=== PATIENT | male | born 1955 | race Caucasian/White ===

== ENCOUNTER 2018-03-16 07:19 | Inpatient (IN) | payer OTHER ==
[~2018-03-16] VITALS: Ht 179.1 cm; Wt 110.7 kg
[2018-03-16 08:19] LABS: PLATELET COUNT 198 x10^3mcL (130-400); RED CELL DISTRIBUTION WIDTH 14.5 % (11.5-14.5)
[2018-03-16 08:29] LABS: CALCIUM 8.7 mg/dL (8.5-10.1); CARBON DIOXIDE 25.3 mmol/L (21-32); CHLORIDE SERUM 103 mmol/L (98-107); CREATININE SERUM 0.9 mg/dL (0.7-1.3); GFR1 > 60 mL/min; GLUCOSE SERUM 137 mg/dL (74-106); POTASSIUM SERUM 3.4 mmol/L (3.5-5.1); SODIUM SERUM 138 mmol/L (136-145)
[2018-03-16 08:33] LABS: ALBUMIN 3.7 g/dL (3.4-5.0); ALKALINE PHOSPHATASE 65 U/L (46-116); ALT/SGPT 63 U/L (16-63); AMYLASE 78 U/L (25-115); AST/SGOT 24 U/L (15-37); BILIRUBIN TOTAL 1.5 mg/dL (0.20-1.00); LIPASE 134 IU/L (73-393); TOTAL PROTEIN, SERUM 8.2 g/dL (6.4-8.2)
[2018-03-16 08:36] LABS: BAND NEUTROPHIL 2 % (0-10); BASOPHIL 0 % (0-2); MONOCYTE 12 % (0-7); SEGMENTED NEUTROPHILS 82 % (37-75)
[2018-03-16 08:37] LABS: PLATELET MORPHOLOGY PLATELETS DECREASED; rbc morphology (normal/abnorm) NORMAL (NORMAL)
[2018-03-16 10:04] LABS: UA SPECIFIC GRAVITY 1.025 (1.005-1.035); microscopic required? YES; urine erythrocyte 2+ (NEGATIVE)
[2018-03-16 13:12] VITALS: BP 125/70
[2018-03-16 17:32] VITALS: BP 106/71
[2018-03-16 20:58] VITALS: BP 123/80
[2018-03-17 05:59] VITALS: BP 116/62
[2018-03-17 06:21] LABS: CALCIUM 8.2 mg/dL (8.5-10.1); CARBON DIOXIDE 23.3 mmol/L (21-32); CHLORIDE SERUM 110 mmol/L (98-107); CREATININE SERUM 0.9 mg/dL (0.7-1.3); GFR1 > 60 mL/min; GLUCOSE SERUM 141 mg/dL (74-106); MAGNESIUM 2.2 mg/dL (1.8-2.4); PHOSPHOROUS 2.1 mg/dL (2.5-4.9); POTASSIUM SERUM 3.9 mmol/L (3.5-5.1); SODIUM SERUM 145 mmol/L (136-145)
[2018-03-17 08:33] VITALS: BP 107/63
[2018-03-17 11:19] LABS: PLATELET COUNT 160 x10^3mcL (130-400); RED CELL DISTRIBUTION WIDTH 14.5 % (11.5-14.5)
[2018-03-17 11:23] LABS: ATYPICAL LYMPH 2 %; BAND NEUTROPHIL 1 % (0-10); BASOPHIL 0 % (0-2); MONOCYTE 2 % (0-7); SEGMENTED NEUTROPHILS 91 % (37-75)
[2018-03-17 11:24] LABS: PLATELET MORPHOLOGY PLATELETS DECREASED; rbc morphology (normal/abnorm) ABNORMAL (NORMAL)
[2018-03-17 12:36] LABS: BASOPHIL % 0.5 % (0-2); PLATELET COUNT 162 x10^3mcL (130-400)
[2018-03-17 12:39] LABS: RED CELL DISTRIBUTION WIDTH 14.6 % (11.5-14.5)
[2018-03-17 14:39] VITALS: BP 116/62
[2018-03-17 16:16] VITALS: BP 116/67
[2018-03-17 21:12] VITALS: BP 122/62
[2018-03-18 06:19] VITALS: BP 118/66
[2018-03-18 06:37] LABS: CALCIUM 8.7 mg/dL (8.5-10.1); CARBON DIOXIDE 22.8 mmol/L (21-32); CHLORIDE SERUM 109 mmol/L (98-107); GFR1 > 60 mL/min; GLUCOSE SERUM 158 mg/dL (74-106); MAGNESIUM 2.2 mg/dL (1.8-2.4); PHOSPHOROUS 2.8 mg/dL (2.5-4.9); POTASSIUM SERUM 4.1 mmol/L (3.5-5.1); SODIUM SERUM 144 mmol/L (136-145)
[2018-03-18 08:14] VITALS: BP 117/63
[2018-03-22 08:26] VITALS: Ht 179.1 cm; Wt 110.7 kg
== END 2018-03-18 16:37 | disposition home or self-care (01) | DRG 720 ==
LOC: ED 07:19 → DU 11:06 → MU 11:06 → DU 12:21 → MU 13:42
PROVIDERS: Internal Medicine; Specialist
DX: A41.9 Sepsis, unspecified organism (principal); N28.1 Cyst of kidney, acquired; N13.6 Pyonephrosis; B96.89 Other specified bacterial agents as the cause of diseases classified elsewhere; E11.9 Type 2 diabetes mellitus without complications; E66.9 Obesity, unspecified; E87.6 Hypokalemia; Z87.81 Personal history of (healed) traumatic fracture; Z87.828 Personal history of other (healed) physical injury and trauma; Z87.442 Personal history of urinary calculi
CPT/HCPCS: J0696; J1170; J1644; J1885; J2270; J2405; J2765; J2920; J3490; J7030; J7620; J7626; Q0092

== ENCOUNTER 2018-11-02 12:37 | Inpatient (IN) | payer OTHER ==
[~2018-11-02] VITALS: Ht 177.8 cm; Wt 118.7 kg
[2018-11-02 13:21] LABS: BASOPHIL % 0.2 % (0-2); PLATELET COUNT 154 x10^3mcL (130-400); RED CELL DISTRIBUTION WIDTH 14.4 % (11.5-14.5)
[2018-11-02 13:39] LABS: CALCIUM 8.9 mg/dL (8.5-10.1); CARBON DIOXIDE 24.4 mmol/L (21-32); CHLORIDE SERUM 102 mmol/L (98-107); CREATININE SERUM 1.1 mg/dL (0.7-1.3); GFR1 > 60 mL/min; GLUCOSE SERUM 181 mg/dL (74-106); POTASSIUM SERUM 3.1 mmol/L (3.5-5.1); SODIUM SERUM 136 mmol/L (136-145)
[2018-11-02 13:44] LABS: ALBUMIN 3.8 g/dL (3.4-5.0); ALKALINE PHOSPHATASE 67 U/L (46-116); ALT/SGPT 57 U/L (16-63); AMYLASE 79 U/L (25-115); AST/SGOT 37 U/L (15-37); BILIRUBIN TOTAL 0.7 mg/dL (0.20-1.00); LIPASE 147 IU/L (73-393); TOTAL PROTEIN, SERUM 8.1 g/dL (6.4-8.2)
[2018-11-02 14:44] LABS: UA SPECIFIC GRAVITY 1.025 (1.005-1.035); microscopic required? YES; urine erythrocyte 2+ (NEGATIVE)
[2018-11-02 18:20] VITALS: BP 102/62
[2018-11-02 21:05] VITALS: BP 119/67
[2018-11-03 05:39] VITALS: BP 151/90
[2018-11-03 06:27] LABS: BASOPHIL % 0.2 % (0-2); PLATELET COUNT 131 x10^3mcL (130-400); RED CELL DISTRIBUTION WIDTH 14.2 % (11.5-14.5)
[2018-11-03 06:41] LABS: CALCIUM 8.5 mg/dL (8.5-10.1); CARBON DIOXIDE 24.6 mmol/L (21-32); CHLORIDE SERUM 105 mmol/L (98-107); CREATININE SERUM 1.2 mg/dL (0.7-1.3); GFR1 > 60 mL/min; GLUCOSE SERUM 153 mg/dL (74-106); POTASSIUM SERUM 3.9 mmol/L (3.5-5.1); SODIUM SERUM 138 mmol/L (136-145)
[2018-11-03 09:54] VITALS: BP 123/68
[2018-11-03 12:33] VITALS: BP 126/62
[2018-11-03 16:35] VITALS: BP 112/55
[2018-11-03 21:38] VITALS: BP 115/67
[2018-11-04 05:42] VITALS: BP 104/65
[2018-11-04 06:15] LABS: BASOPHIL % 0.2 % (0-2); RED CELL DISTRIBUTION WIDTH 14.1 % (11.5-14.5)
[2018-11-04 06:17] LABS: CARBON DIOXIDE 23.3 mmol/L (21-32); CHLORIDE SERUM 104 mmol/L (98-107); CREATININE SERUM 1.1 mg/dL (0.7-1.3); GFR1 > 60 mL/min; GLUCOSE SERUM 137 mg/dL (74-106); MAGNESIUM 1.9 mg/dL (1.8-2.4); POTASSIUM SERUM 3.6 mmol/L (3.5-5.1); SODIUM SERUM 138 mmol/L (136-145)
[2018-11-04 06:20] LABS: PLATELET COUNT 98 x10^3mcL (130-400)
[2018-11-04 10:26] VITALS: BP 110/62
[2018-11-04 15:10] VITALS: Ht 177.8 cm; Wt 118.7 kg
[2018-11-04 17:21] LABS: AMPHETAMINE QUAL UR NONE DETECTED (See below)
[2018-11-04 18:18] VITALS: BP 100/60
[2018-11-04 20:56] VITALS: BP 118/69
[2018-11-05 05:06] VITALS: BP 126/71
[2018-11-05 08:19] VITALS: BP 120/60
[2018-11-05 16:14] VITALS: BP 121/56
[2018-11-05 20:05] VITALS: BP 132/77
[2018-11-06 04:19] VITALS: BP 104/71
[2018-11-06 07:14] LABS: RED CELL DISTRIBUTION WIDTH 14.4 % (11.5-14.5)
[2018-11-06 07:23] LABS: BASOPHIL % 0 % (0-2); PLATELET COUNT 54 x10^3mcL (130-400)
[2018-11-06 08:03] LABS: CARBON DIOXIDE 23.9 mmol/L (21-32); CHLORIDE SERUM 106 mmol/L (98-107); CREATININE SERUM 1.1 mg/dL (0.7-1.3); GFR1 > 60 mL/min; GLUCOSE SERUM 130 mg/dL (74-106); POTASSIUM SERUM 3.4 mmol/L (3.5-5.1); SODIUM SERUM 141 mmol/L (136-145)
[2018-11-06 09:47] VITALS: BP 118/63
[2018-11-06 17:27] VITALS: BP 123/58
[2018-11-06 20:56] VITALS: BP 94/62
[2018-11-07 05:16] VITALS: BP 100/57
[2018-11-07 07:05] LABS: BILIRUBIN TOTAL 2.95 mg/dL (0.20-1.00); CARBON DIOXIDE 24.3 mmol/L (21-32); CREATININE SERUM 1.3 mg/dL (0.7-1.3); MAGNESIUM 2.1 mg/dL (1.8-2.4); PHOSPHOROUS 2.2 mg/dL (2.5-4.9); POTASSIUM SERUM 3.6 mmol/L (3.5-5.1)
[2018-11-07 07:06] LABS: ALBUMIN 2.3 g/dL (3.4-5.0); TOTAL PROTEIN, SERUM 5.5 g/dL (6.4-8.2)
[2018-11-07 07:19] LABS: RED CELL DISTRIBUTION WIDTH 14.7 % (11.5-14.5)
[2018-11-07 09:24] VITALS: BP 105/56
[2018-11-07 09:31] LABS: BAND NEUTROPHIL 23 % (0-10); BASOPHIL 0 % (0-2); MONOCYTE 3 % (0-7); SEGMENTED NEUTROPHILS 61 % (37-75)
[2018-11-07 09:33] LABS: rbc morphology (normal/abnorm) NORMAL (NORMAL)
[2018-11-07 12:50] LABS: PLATELET COUNT 41 x10^3mcL (130-400)
[2018-11-07 17:51] VITALS: BP 90/44
[2018-11-07 19:41] VITALS: BP 108/47
[2018-11-08 04:55] VITALS: BP 84/55
[2018-11-08 06:55] LABS: UA SPECIFIC GRAVITY 1.025 (1.005-1.035); microscopic required? YES; urine erythrocyte 2+ (NEGATIVE)
[2018-11-08 09:00] VITALS: BP 84/54
[2018-11-08 10:47] VITALS: BP 115/64
[2018-11-08 14:48] VITALS: BP 83/46
[2018-11-08 15:08] LABS: CARBON DIOXIDE 22.8 mmol/L (21-32); CREATININE SERUM 1.6 mg/dL (0.7-1.3); POTASSIUM SERUM 3.6 mmol/L (3.5-5.1)
[2018-11-08 15:19] LABS: RED CELL DISTRIBUTION WIDTH 15.3 % (11.5-14.5)
[2018-11-08 15:51] LABS: BAND NEUTROPHIL 7 % (0-10); BASOPHIL 0 % (0-2); MONOCYTE 2 % (0-7); SEGMENTED NEUTROPHILS 66 % (37-75)
[2018-11-08 15:53] LABS: rbc morphology (normal/abnorm) NORMAL (NORMAL)
[2018-11-08 15:55] LABS: PLATELET COUNT 22 x10^3mcL (130-400)
[2018-11-08 23:20] VITALS: BP 100/62
[2018-11-09 03:15] VITALS: BP 93/69
[2018-11-09 05:48] LABS: BASOPHIL % 0.2 % (0-2)
[2018-11-09 05:52] LABS: ALKALINE PHOSPHATASE 91 U/L (46-116); ALT/SGPT 118 U/L (16-63); AST/SGOT 226 U/L (15-37); BILIRUBIN TOTAL 4.18 mg/dL (0.20-1.00); CALCIUM 7.5 mg/dL (8.5-10.1); CARBON DIOXIDE 21.7 mmol/L (21-32); CHLORIDE SERUM 106 mmol/L (98-107); GFR1 > 60 mL/min; GLUCOSE SERUM 142 mg/dL (74-106); LIPASE 81 IU/L (73-393); MAGNESIUM 2.4 mg/dL (1.8-2.4); SODIUM SERUM 131 mmol/L (136-145)
[2018-11-09 05:53] LABS: TOTAL PROTEIN, SERUM 4.9 g/dL (6.4-8.2)
[2018-11-09 05:55] LABS: RED CELL DISTRIBUTION WIDTH 15.1 % (11.5-14.5)
[2018-11-09 08:41] VITALS: BP 110/67
[2018-11-09 09:22] LABS: PLATELET COUNT 25 x10^3mcL (130-400)
[2018-11-09 12:13] VITALS: BP 106/63
[2018-11-09 16:17] VITALS: BP 98/71
[2018-11-09 19:15] VITALS: BP 112/60
[2018-11-09 23:31] VITALS: BP 126/62
[2018-11-10 03:31] VITALS: BP 121/65
[2018-11-10 05:19] LABS: ALKALINE PHOSPHATASE 82 U/L (46-116); ALT/SGPT 94 U/L (16-63); AST/SGOT 164 U/L (15-37); BILIRUBIN TOTAL 3.18 mg/dL (0.20-1.00); CALCIUM 7.8 mg/dL (8.5-10.1); CARBON DIOXIDE 20.4 mmol/L (21-32); CHLORIDE SERUM 113 mmol/L (98-107); CREATININE SERUM 0.9 mg/dL (0.7-1.3); GFR1 > 60 mL/min; GLUCOSE SERUM 157 mg/dL (74-106); MAGNESIUM 2.5 mg/dL (1.8-2.4); POTASSIUM SERUM 3.6 mmol/L (3.5-5.1); SODIUM SERUM 144 mmol/L (136-145)
[2018-11-10 05:28] LABS: ALBUMIN 2.2 g/dL (3.4-5.0); TOTAL PROTEIN, SERUM 4.9 g/dL (6.4-8.2)
[2018-11-10 06:04] LABS: BASOPHIL % 0 % (0-2); PLATELET COUNT 39 x10^3mcL (130-400); RED CELL DISTRIBUTION WIDTH 15.3 % (11.5-14.5)
[2018-11-10 07:30] VITALS: BP 117/82
[2018-11-10 17:15] VITALS: BP 106/66
[2018-11-10 20:48] VITALS: BP 114/68
[2018-11-11 07:20] LABS: ALKALINE PHOSPHATASE 90 U/L (46-116); ALT/SGPT 105 U/L (16-63); AST/SGOT 163 U/L (15-37); BILIRUBIN TOTAL 1.97 mg/dL (0.20-1.00); CALCIUM 7.8 mg/dL (8.5-10.1); CARBON DIOXIDE 22.8 mmol/L (21-32); CHLORIDE SERUM 115 mmol/L (98-107); CREATININE SERUM 0.8 mg/dL (0.7-1.3); GFR1 > 60 mL/min; GLUCOSE SERUM 143 mg/dL (74-106); MAGNESIUM 2.5 mg/dL (1.8-2.4); POTASSIUM SERUM 3.5 mmol/L (3.5-5.1); SODIUM SERUM 146 mmol/L (136-145)
[2018-11-11 07:29] LABS: ALBUMIN 2.1 g/dL (3.4-5.0); TOTAL PROTEIN, SERUM 4.9 g/dL (6.4-8.2)
[2018-11-11 07:59] LABS: RED CELL DISTRIBUTION WIDTH 14.5 % (11.5-14.5)
[2018-11-11 09:20] VITALS: BP 108/67
[2018-11-11 09:30] LABS: PLATELET COUNT 70 x10^3mcL (130-400)
[2018-11-11 13:25] VITALS: BP 107/67
[2018-11-11 15:07] LABS: BAND NEUTROPHIL 1 % (0-10); BASOPHIL 0 % (0-2); MONOCYTE 2 % (0-7); SEGMENTED NEUTROPHILS 87 % (37-75)
[2018-11-11 15:08] LABS: rbc morphology (normal/abnorm) NORMAL (NORMAL)
[2018-11-11 17:20] VITALS: BP 99/60
[2018-11-11 20:56] VITALS: BP 129/78
[2018-11-12 05:53] VITALS: BP 133/69
[2018-11-12 07:07] LABS: BASOPHIL % 0.2 % (0-2)
[2018-11-12 07:08] LABS: PLATELET COUNT 99 x10^3mcL (130-400); RED CELL DISTRIBUTION WIDTH 15.1 % (11.5-14.5)
[2018-11-12 07:30] LABS: ALKALINE PHOSPHATASE 94 U/L (46-116); ALT/SGPT 115 U/L (16-63); AST/SGOT 124 U/L (15-37); BILIRUBIN TOTAL 1.9 mg/dL (0.20-1.00); CALCIUM 7.1 mg/dL (8.5-10.1); CARBON DIOXIDE 28.9 mmol/L (21-32); CHLORIDE SERUM 111 mmol/L (98-107); CREATININE SERUM 0.9 mg/dL (0.7-1.3); GFR1 > 60 mL/min; GLUCOSE SERUM 115 mg/dL (74-106); MAGNESIUM 1.9 mg/dL (1.8-2.4); POTASSIUM SERUM 3.4 mmol/L (3.5-5.1); SODIUM SERUM 144 mmol/L (136-145)
[2018-11-12 07:32] LABS: ALBUMIN 2.1 g/dL (3.4-5.0); TOTAL PROTEIN, SERUM 5.1 g/dL (6.4-8.2)
[2018-11-12 09:02] VITALS: BP 133/72
[2018-11-12 14:00] VITALS: BP 129/78
[2018-11-12 17:40] VITALS: BP 126/73
[2018-11-12 21:05] VITALS: BP 142/71
[2018-11-13 05:51] VITALS: BP 125/65
[2018-11-13 07:05] LABS: ALBUMIN 2.2 g/dL (3.4-5.0); ALKALINE PHOSPHATASE 89 U/L (46-116); ALT/SGPT 96 U/L (16-63); AST/SGOT 82 U/L (15-37); BILIRUBIN TOTAL 1.6 mg/dL (0.20-1.00); CALCIUM 7.2 mg/dL (8.5-10.1); CARBON DIOXIDE 29.2 mmol/L (21-32); CHLORIDE SERUM 104 mmol/L (98-107); CREATININE SERUM 0.8 mg/dL (0.7-1.3); GFR1 > 60 mL/min; GLUCOSE SERUM 125 mg/dL (74-106); MAGNESIUM 1.8 mg/dL (1.8-2.4); POTASSIUM SERUM 3.4 mmol/L (3.5-5.1); SODIUM SERUM 139 mmol/L (136-145); TOTAL PROTEIN, SERUM 5.4 g/dL (6.4-8.2)
[2018-11-13 07:19] LABS: BASOPHIL % 0.3 % (0-2)
[2018-11-13 07:22] LABS: PLATELET COUNT 120 x10^3mcL (130-400); RED CELL DISTRIBUTION WIDTH 15.1 % (11.5-14.5)
[2018-11-13 09:30] VITALS: BP 116/66
[2018-11-13 12:29] VITALS: BP 113/65
[2018-11-13 17:28] VITALS: BP 111/66
[2018-11-13 21:51] VITALS: BP 114/59
[2018-11-14 05:54] VITALS: BP 110/67
[2018-11-14 07:12] LABS: BASOPHIL % 0.2 % (0-2); PLATELET COUNT 141 x10^3mcL (130-400)
[2018-11-14 07:25] LABS: ALKALINE PHOSPHATASE 94 U/L (46-116); ALT/SGPT 101 U/L (16-63); AST/SGOT 78 U/L (15-37); BILIRUBIN DIRECT 0.87 mg/dL (0.0-0.2); BILIRUBIN TOTAL 1.5 mg/dL (0.20-1.00); CALCIUM 7.4 mg/dL (8.5-10.1); CARBON DIOXIDE 27.9 mmol/L (21-32); CHLORIDE SERUM 103 mmol/L (98-107); CREATININE SERUM 0.7 mg/dL (0.7-1.3); GFR1 > 60 mL/min; GLUCOSE SERUM 121 mg/dL (74-106); POTASSIUM SERUM 3.4 mmol/L (3.5-5.1); SODIUM SERUM 136 mmol/L (136-145)
[2018-11-14 07:26] LABS: ALBUMIN 2.2 g/dL (3.4-5.0); TOTAL PROTEIN, SERUM 5.8 g/dL (6.4-8.2)
[2018-11-14 07:34] LABS: RED CELL DISTRIBUTION WIDTH 15.1 % (11.5-14.5)
[2018-11-14 08:59] VITALS: BP 101/47
[2018-11-14 13:12] VITALS: BP 117/69
[2018-11-14 17:17] VITALS: BP 112/58
[2018-11-14 20:56] VITALS: BP 140/67
[2018-11-15 05:18] VITALS: BP 110/62
[2018-11-15 07:24] LABS: CALCIUM 7.4 mg/dL (8.5-10.1); CARBON DIOXIDE 26.1 mmol/L (21-32); CHLORIDE SERUM 103 mmol/L (98-107); CREATININE SERUM 0.7 mg/dL (0.7-1.3); GFR1 > 60 mL/min; GLUCOSE SERUM 115 mg/dL (74-106); MAGNESIUM 1.9 mg/dL (1.8-2.4); POTASSIUM SERUM 3.6 mmol/L (3.5-5.1); SODIUM SERUM 136 mmol/L (136-145)
[2018-11-15 07:35] LABS: BASOPHIL % 0.4 % (0-2); PLATELET COUNT 162 x10^3mcL (130-400)
[2018-11-15 08:02] LABS: RED CELL DISTRIBUTION WIDTH 15.8 % (11.5-14.5)
[2018-11-15 09:33] VITALS: BP 113/60
[2018-11-15 13:48] VITALS: BP 107/62
[2018-11-15 13:53] VITALS: BP 107/62
[2018-11-15 16:52] VITALS: BP 92/53
[2018-11-15 21:32] VITALS: BP 107/57
[2018-11-16 06:13] LABS: BASOPHIL % 0.4 % (0-2); PLATELET COUNT 188 x10^3mcL (130-400)
[2018-11-16 06:33] LABS: CALCIUM 7.5 mg/dL (8.5-10.1); CARBON DIOXIDE 24.1 mmol/L (21-32); CHLORIDE SERUM 103 mmol/L (98-107); CREATININE SERUM 0.6 mg/dL (0.7-1.3); GFR1 > 60 mL/min; GLUCOSE SERUM 108 mg/dL (74-106); POTASSIUM SERUM 3.5 mmol/L (3.5-5.1); SODIUM SERUM 136 mmol/L (136-145)
[2018-11-16 06:38] LABS: RED CELL DISTRIBUTION WIDTH 15.5 % (11.5-14.5)
[2018-11-16 06:40] VITALS: BP 105/66
[2018-11-16 09:36] VITALS: BP 98/59
[2018-11-16 13:03] VITALS: BP 111/64
[2018-11-16 17:01] VITALS: BP 98/61
[2018-11-16 21:21] VITALS: BP 115/68
[2018-11-17 06:11] VITALS: BP 121/68
[2018-11-17 06:34] LABS: BASOPHIL % 0.5 % (0-2); PLATELET COUNT 202 x10^3mcL (130-400)
[2018-11-17 06:40] LABS: RED CELL DISTRIBUTION WIDTH 15.9 % (11.5-14.5)
[2018-11-17 06:51] LABS: ALT/SGPT 89 U/L (16-63); CALCIUM 7.8 mg/dL (8.5-10.1); CARBON DIOXIDE 26.3 mmol/L (21-32); CHLORIDE SERUM 105 mmol/L (98-107); CREATININE SERUM 0.8 mg/dL (0.7-1.3); GFR1 > 60 mL/min; GLUCOSE SERUM 109 mg/dL (74-106); POTASSIUM SERUM 3.8 mmol/L (3.5-5.1); SODIUM SERUM 140 mmol/L (136-145)
[2018-11-17 07:33] LABS: ALKALINE PHOSPHATASE 90 U/L (46-116); AST/SGOT 58 U/L (15-37); BILIRUBIN TOTAL 1.19 mg/dL (0.20-1.00); TOTAL PROTEIN, SERUM 6.2 g/dL (6.4-8.2)
[2018-11-17 07:35] LABS: ALBUMIN 2.4 g/dL (3.4-5.0)
[2018-11-17 09:40] VITALS: BP 106/63
[2018-11-17 13:40] VITALS: BP 123/67
[2018-11-17 18:06] VITALS: BP 115/70
[2018-11-17 20:24] VITALS: BP 109/66
[2018-11-18 05:24] VITALS: BP 118/62
[2018-11-18 09:21] VITALS: BP 119/70
[2018-11-18 09:51] LABS: BASOPHIL % 0.5 % (0-2); PLATELET COUNT 219 x10^3mcL (130-400)
[2018-11-18 09:58] LABS: RED CELL DISTRIBUTION WIDTH 15.6 % (11.5-14.5)
[2018-11-18 10:32] LABS: ALKALINE PHOSPHATASE 97 U/L (46-116); ALT/SGPT 106 U/L (16-63); AST/SGOT 57 U/L (15-37); CALCIUM 8.3 mg/dL (8.5-10.1); CARBON DIOXIDE 26.6 mmol/L (21-32); CHLORIDE SERUM 102 mmol/L (98-107); CREATININE SERUM 0.9 mg/dL (0.7-1.3); GFR1 > 60 mL/min; GLUCOSE SERUM 135 mg/dL (74-106); POTASSIUM SERUM 3.6 mmol/L (3.5-5.1); SODIUM SERUM 137 mmol/L (136-145); TOTAL PROTEIN, SERUM 6.8 g/dL (6.4-8.2)
[2018-11-18 10:33] LABS: ALBUMIN 2.6 g/dL (3.4-5.0)
[2018-11-18 13:02] VITALS: BP 136/67
[2018-11-18 17:08] VITALS: BP 104/50
[2018-11-18 20:41] VITALS: BP 112/60
[2018-11-19 05:09] VITALS: BP 125/63
[2018-11-19 06:21] LABS: BASOPHIL % 0.3 % (0-2); PLATELET COUNT 243 x10^3mcL (130-400)
[2018-11-19 06:30] LABS: ALKALINE PHOSPHATASE 92 U/L (46-116); ALT/SGPT 99 U/L (16-63); AST/SGOT 49 U/L (15-37); BILIRUBIN DIRECT 0.63 mg/dL (0.0-0.2); CALCIUM 8.7 mg/dL (8.5-10.1); CARBON DIOXIDE 21.4 mmol/L (21-32); CHLORIDE SERUM 105 mmol/L (98-107); CREATININE SERUM 0.9 mg/dL (0.7-1.3); GFR1 > 60 mL/min; GLUCOSE SERUM 140 mg/dL (74-106); POTASSIUM SERUM 3.9 mmol/L (3.5-5.1); SODIUM SERUM 140 mmol/L (136-145); TOTAL PROTEIN, SERUM 6.9 g/dL (6.4-8.2)
[2018-11-19 06:37] LABS: ALBUMIN 2.7 g/dL (3.4-5.0)
[2018-11-19 07:14] LABS: RED CELL DISTRIBUTION WIDTH 15.4 % (11.5-14.5)
[2018-11-19 09:46] VITALS: BP 110/62
[2018-11-19 13:06] VITALS: BP 118/65
[2018-11-19 16:44] VITALS: BP 105/66
[2018-11-19 20:41] VITALS: BP 119/66
[2018-11-20 05:29] VITALS: BP 114/62
[2018-11-20 06:29] LABS: BASOPHIL % 0.7 % (0-2); PLATELET COUNT 271 x10^3mcL (130-400)
[2018-11-20 06:59] LABS: ALKALINE PHOSPHATASE 86 U/L (46-116); ALT/SGPT 145 U/L (16-63); AST/SGOT 95 U/L (15-37); BILIRUBIN DIRECT 0.62 mg/dL (0.0-0.2); BILIRUBIN TOTAL 1.01 mg/dL (0.20-1.00); CALCIUM 8.7 mg/dL (8.5-10.1); CARBON DIOXIDE 25.1 mmol/L (21-32); CHLORIDE SERUM 107 mmol/L (98-107); CREATININE SERUM 0.9 mg/dL (0.7-1.3); GFR1 > 60 mL/min; GLUCOSE SERUM 112 mg/dL (74-106); POTASSIUM SERUM 3.5 mmol/L (3.5-5.1); SODIUM SERUM 142 mmol/L (136-145); TOTAL PROTEIN, SERUM 6.9 g/dL (6.4-8.2)
[2018-11-20 07:16] LABS: ALBUMIN 2.8 g/dL (3.4-5.0)
[2018-11-20 07:25] LABS: RED CELL DISTRIBUTION WIDTH 15.6 % (11.5-14.5)
[2018-11-20 09:05] VITALS: BP 124/68
[2018-11-20] MEDS ORDERED: SIMETHICONE80 MG CH (11:32)
[2018-11-20] MEDS ORDERED: TYL325 PO (11:32)
[2018-11-20] MEDS ORDERED: MULTAQ400 MG PO (11:32)
[2018-11-20] MEDS ORDERED: PROTONIX40 MG/Pac1 PO (11:32)
[2018-11-20 12:41] VITALS: BP 123/78
== END 2018-11-20 16:17 | DRG 720 ==
LOC: ED 12:37 → DU 17:33 → MU 17:33 → DU 18:16 → MU 11-03 14:59 → IC 11-08 18:06 → DU 11-10 10:05
PROVIDERS: Emergency Medicine; Internal Medicine; Internal Medicine Gastroenterology; Internal Medicine Pulmonary Disease; ADMIT Internal Medicine Pulmonary Disease
PROC: 0DB98ZX Excision of Duodenum, Via Natural or Artificial Opening Endoscopic, Diagnostic (ICD-10-PCS; principal; 2018-11-04 08:00)
PROC: 0DB68ZX Excision of Stomach, Via Natural or Artificial Opening Endoscopic, Diagnostic (ICD-10-PCS; 2018-11-04 08:00)
PROC: 0DJD8ZZ Inspection of Lower Intestinal Tract, Via Natural or Artificial Opening Endoscopic (ICD-10-PCS; 2018-11-05)
PROC: 5A2204Z Restoration of Cardiac Rhythm, Single (ICD-10-PCS; 2018-11-09)
DX: A41.9 Sepsis, unspecified organism (principal); N17.0 Acute kidney failure with tubular necrosis; R65.21 Severe sepsis with septic shock; D69.6 Thrombocytopenia, unspecified; K83.1 Obstruction of bile duct; I48.91 Unspecified atrial fibrillation; E66.01 Morbid (severe) obesity due to excess calories; I08.1 Rheumatic disorders of both mitral and tricuspid valves; E86.9 Volume depletion, unspecified; K57.32 Diverticulitis of large intestine without perforation or abscess without bleeding; I11.9 Hypertensive heart disease without heart failure; E11.9 Type 2 diabetes mellitus without complications; K64.8 Other hemorrhoids; N13.6 Pyonephrosis; E87.6 Hypokalemia; K44.9 Diaphragmatic hernia without obstruction or gangrene; M16.11 Unilateral primary osteoarthritis, right hip; K76.0 Fatty (change of) liver, not elsewhere classified; N13.0 Hydronephrosis with ureteropelvic junction obstruction; L27.0 Generalized skin eruption due to drugs and medicaments taken internally; T39.1X5A Adverse effect of 4-Aminophenol derivatives, initial encounter; Y92.238 Other place in hospital as the place of occurrence of the external cause; Z87.440 Personal history of urinary (tract) infections; Z88.8 Allergy status to other drugs, medicaments and biological substances; Z87.442 Personal history of urinary calculi; Z68.37 Body mass index [BMI] 37.0-37.9, adult; Z86.010 Personal history of colon polyps; Z79.899 Other long term (current) drug therapy
CPT/HCPCS: 43235; 45378; 78226; 83880; 85378; 87338; 94150; 97110-GP; 97116-GP; 97530-GP; A9537; J0282; J0696; J1200; J1610; J1644; J1650; J1720; J1885; J1940; J1956; J2060; J2185; J2250; J2270; J2310; J2405; J2543; J2930; J3010; J3370; J3475; J3490; J7030; J7040; J7050; Q0092; Q9966; Q9967

== ENCOUNTER 2019-01-16 12:50 | Inpatient (IN) | payer OTHER ==
[~2019-01-16] VITALS: Ht 177.8 cm; Wt 111.3 kg
[~2019-01-16 12:50] MED LIST: MULTAQ400 MG PO; PROTONIX40 MG/Pac1 PO; SIMETHICONE80 MG CH; TYL325 PO
[2019-01-16 12:58] VITALS: Ht 177.8 cm; Wt 111.3 kg
--- NOTE | 2019-01-16 13:40 | NUR ---
PT WAS MOVED TO ROOM 11
[2019-01-16 13:45] LABS: BASOPHIL % 0.2 % (0-2); PLATELET COUNT 189 x10^3mcL (130-400)
[2019-01-16 13:46] LABS: RED CELL DISTRIBUTION WIDTH 14.8 % (11.5-14.5)
[2019-01-16 13:47] LABS: ALBUMIN 3.9 g/dL (3.4-5.0); ALKALINE PHOSPHATASE 58 U/L (46-116); ALT/SGPT 61 U/L (16-63); AST/SGOT 36 U/L (15-37); BILIRUBIN TOTAL 0.7 mg/dL (0.20-1.00); CALCIUM 9.3 mg/dL (8.5-10.1); CARBON DIOXIDE 21.8 mmol/L (21-32); CHLORIDE SERUM 105 mmol/L (98-107); CREATININE SERUM 0.9 mg/dL (0.7-1.3); GFR1 > 60 mL/min; GLUCOSE SERUM 124 mg/dL (74-106); POTASSIUM SERUM 3.7 mmol/L (3.5-5.1); SODIUM SERUM 140 mmol/L (136-145)
[2019-01-16 13:48] LABS: TOTAL PROTEIN, SERUM 8.3 g/dL (6.4-8.2)
--- NOTE | 2019-01-16 13:49 | NUR ---
URINE SAMPLE COLLECTED. URINE DIP DONE.
--- NOTE | 2019-01-16 14:48 | NUR ---
PHENTANYL WITH ZOFRAN GIVEN PER MD ORDER.
[2019-01-16 15:08] LABS: CK-MB 0.7 ng/mL (0-3.6)
[2019-01-16 15:12] LABS: T3 TOTAL 1.05 ng/mL
[2019-01-16 15:18] LABS: UA SPECIFIC GRAVITY 1.025 (1.005-1.035); microscopic required? YES; urine erythrocyte 2+ (NEGATIVE)
[2019-01-16 15:20] LABS: C REACTIVE PROTEIN 1.7 mg/dL (<=0.9)
--- NOTE | 2019-01-16 16:00 | NUR ---
PLACED PT ON 3L NC PER ABG RESULT. DR HATFIELD NOTIFIED.
[2019-01-16 16:45] LABS: FREE T4 0.75 ng/dL (0.76-1.46); FREE THYROXINE INDEX 2.1 ug/dL (1.4-4.5); T4(THYROXINE) 6.7 ug/dL (4.7-13.3)
--- NOTE | 2019-01-16 18:30 | NUR ---
PT WAS ADMINISTERED TO TELE. ROOM 221B. REPORT WAS CALLED AND GIVEN TO KEN. TRAVIS
--- NOTE | 2019-01-16 18:55 | NUR ---
PATIENT ARRIVED FROM ED VIA [facility] ACCOMPANIED BY NURSE, EMT AND FAMILY. PATIENT FOUND IN BED LEFT SIDE LAYING GRIMMACING. PATEINT ALERT AND ORIENTED X4, FOLLOWING COMMANDS. IV TO LEFT WRIST. PATIENT COMPLAINING OF LLQ ABOMINAL PAIN, PAIN ON PALPATION. ASSESSMENT PERFORMED BY SURU RN. NO ORDERS OF YET WILL ENDORSE PATIENT TO NIGHT NURSE
[2019-01-16 18:57] VITALS: BP 135/69
--- NOTE | 2019-01-16 19:05 | NUR ---
RECEIVED PT FROM ED VIA MARY. ORIENTED PT TO ROOM AND SURROUNDINGS. IV NOTED TO PATENT AND INTACT. TELE 10 PLACED ON PT READING SR. INSTRUCTED PT ON THE USE OF CALL LIGHT FOR ASSISTANCE. ENDORSED PT TO PRIMARY NURSE ANGELIA
--- NOTE | 2019-01-16 19:15 | NUR ---
PT RECEIVED FROM RESOURCE NURSE. PT A/O X4, ABLE TO MAKE NEEDS KNOWN. FAMILY AT BEDSIDE. TELE #10, DENIES ANY CP/PRESSURE. PULSES PALPABLE, NO EDEMA PRESENT. BREATHING IS EVEN AND UNLABORED ON RA, NO RESP DISTRESS NOTED. ABD SOFT AND ROUND, BOWEL TONES ACTIVE, PT DENIES N/V. VOIDS FREELY, BRP. PT C/O OF BURNING UPON URINATION, UA (+), PT RECEIVED FLAGYL AND LEVAQUIN IN ED. AMBULATORY WITH STEADY GAIT. SKIN IS WARM AND DRY, INTACT. PT C/O 03/31 ABD PAIN, WILL CALL DR MOHAN FOR ORDERS. IV TO LH/LW, PATENT AND INTACT, SITE FREE FROM REDNESS OR SWELLING. NO ACUTE DISTRESS NOTED. BED IN LOWEST SETTING, SIDE RAILS UP X2, CALL LIGHT WITHIN REACH. WILL CONT TO MONITOR.
--- NOTE | 2019-01-16 19:41 | NUR ---
RECEIVED CALLBACK FROM DR MOHAN, UPDATED DR ON PT'S STATUS, ORDERS RECEIVED.
--- NOTE | 2019-01-16 19:55 | NUR ---
PT C/O 03/31 ABD PAIN, PRN MORPHINE IVP GIVEN ORDERED. NO ACUTE DISTRESS NOTED. CALL LIGHT WITHIN REACH. WILL CONT TO MONITOR.
--- NOTE | 2019-01-16 20:12 | NUR ---
PT C/O NAUSEA, PRN ZOFRAN IVP GIVEN ORDERED. EMESIS BAG GIVEN. NO VOMITING NOTED AT THIS TIME. NO ACUTE DISTRESS OBSERVED. WILL CONT TO MONITOR.
[2019-01-16 20:45] VITALS: BP 126/56
--- NOTE | 2019-01-16 21:00 | NUR ---
PT CONTINUES TO C/O 03/31 ABD PAIN UNRELIEVED FROM MORPHINE IVP. PT REQUESTING STRONGER PAIN MEDICATION AND FAMILY AT BEDSIDE STATES, "WE WERE THINKING ABOUT MAYBE GOING TO ANOTHER HOSPITAL, BECAUSE HIS PAIN ISN'T BEING MANAGED HERE, BUT WE'LL WAIT TO SEE WHAT THE DR SAYS." DR MOHAN CALLED AND UPDATED ON PT'S STATUS, ORDERS RECEIVED.
--- NOTE | 2019-01-16 21:49 | NUR ---
PT CONT TO C/O 03/31 ABD PAIN, PRN MORPHINE IVP GIVEN ORDERED. NO ACUTE DISTRESS NOTED. CALL LIGHT WITHIN REACH. WILL CONT TO MONITOR.
--- NOTE | 2019-01-17 02:00 | NUR ---
PT C/O 01/29 ABD PAIN, PRN MORPHINE IVP GIVEN ORDERED. NO ACUTE DISTRESS NOTED. CALL LIGHT WITHIN REACH. WILL CONT TO MONITOR.
[2019-01-17 05:57] VITALS: BP 115/74
--- NOTE | 2019-01-17 06:21 | NUR ---
PT C/O 03/01 ABD PAIN, PRN MORPHINE IVP GIVEN ORDERED. NO ACUTE DISTRESS NOTED. WILL CONT TO MONITOR.
[2019-01-17 06:34] LABS: BASOPHIL % 0.3 % (0-2); PLATELET COUNT 163 x10^3mcL (130-400); RED CELL DISTRIBUTION WIDTH 14.5 % (11.5-14.5)
[2019-01-17 07:07] LABS: ALKALINE PHOSPHATASE 57 U/L (46-116); ALT/SGPT 42 U/L (16-63); AST/SGOT 20 U/L (15-37); BILIRUBIN TOTAL 0.94 mg/dL (0.20-1.00); CALCIUM 8.2 mg/dL (8.5-10.1); CARBON DIOXIDE 21.5 mmol/L (21-32); CHLORIDE SERUM 107 mmol/L (98-107); CREATININE SERUM 0.9 mg/dL (0.7-1.3); GFR1 > 60 mL/min; GLUCOSE SERUM 111 mg/dL (74-106); POTASSIUM SERUM 3.5 mmol/L (3.5-5.1); SODIUM SERUM 141 mmol/L (136-145); TOTAL PROTEIN, SERUM 7.4 g/dL (6.4-8.2)
[2019-01-17 07:10] LABS: ALBUMIN 3.2 g/dL (3.4-5.0)
--- NOTE | 2019-01-17 07:20 | NUR ---
PT SLEPT AT INTERVALS THROUGHOUT THE EVENING. BREATHING IS EVEN AND UNLABORED, NO RESP DISTRESS NOTED. PT DENIES HAVING ANY PAIN AT THIS TIME. NO ACUTE CHANGES ENCOUNTERED DURING SHIFT. ALL NEEDS MET AND ANTICIPATED. PT COMPLIANT WITH NURSING CARE. IVF INFUSING WELL TO RH, PATENT AND INTACT, SITE FREE FROM REDNESS OR SWELLING. CONTINUITY OF CARE ENDORSED TO AM NURSE. ALL QUESTIONS AND CONCERNS ADDRESSED.
--- NOTE | 2019-01-17 08:00 | NUR ---
RECEIVED PATIENT AWAKE AND FAMILURE TO THIS STAFF WITH RECENT PREVIOUS ADMISSION FOR SOB. PATIENT HAS HISTORY OF CHRONIC ASTHMA, COPD AND WITH HTN, SLEEP APNEA AND REATIVE AIRWAY DISEASE. PATEINT HAS BEEN WITH RALES THIS AM AND SHE HAS A TENDANCY TO HOLD HER BREATH AD THE SATURATIONS ARE LOWER AT 92% PATIENT HAS HAD VITALS THIS AM AT 97.2, 85, 18, 108/79, 96% AT 500AM. THE PATIENT CONTINUED ON BREATHING TREATMENTS OF XOPENEX AND PULMICORT ORDERED. SHE IS REQUESTING ATIVAN THIS AM, SHE IS GROSSLY OBESE WITH EDEMA NOTED TO THE LOWER EXTREMTIES ADN IS WITH BLOATED APPEARANCE OVERALL. SHE HAS ACTIVE BOWEL SOUNDS AND THE ABDOMEN IS DISTENDED BUT SOFT. PATIENT HAS BEEN ON 02 BUT REFUSED THE BI PAP LAST NIGHT. HER HEARTRATE IS RUNNING SINUS TO SINUS TACH, THE PATIENT IS FOR POSSIBLE DISCHARGE TO THE [facility] TODAY. SHE IS WITH SOB ON EXERTION AND OLSON SNOT APPEAR TO HAVE ANY ACUTE DISTRESS AT THIS TIME. WBC AT 17.1 AND NOTED THE GLUCOSE AT 135. AWAITING ORDERS AT THIS TIME. GAJESSE AT BEDSIDE AND SECURTIY HAS BEEN MAINTAINED.
--- NOTE | 2019-01-17 08:00 | NUR ---
PATIENT RECEIVED ALERT AND ORIENTED TIMES FOUR. PATIENT HAS BEEN WITH NOTED WBC AT 17.0 AND NOW AT 21.1. THE PATIENT HAS ORDERED ROCEPHIN AND SALINE IV. PATIENT NOTED THE PHOS AT 1.9, AND ALSO THE POTASSIUM AT 3.4. THE PATIENT HAS NEGATIVE CHEST XRAY BUT HAS DIMINIHSED BREATH SOUNDS AND THE VITALS AT THIS TIME AT 99.8, 102, 18, 118/62, 97%. THE URINE IS WITH WBCS OF 30-50, AND THE PATIENT HAS LAST BLOOD SUGAR AT 219 AND COVERAGE WAS GIVEN OF 6 UINTS. PATIENT HAS BEEN URING THE URINAL AND DENIES ANY BURNING OR HESITATION AT THIS TIME. GAVE PATIENT HIS FLOWMAX AND HAS NOTED HISTORY OF BPH, HTN, PAD AND DM.
--- NOTE | 2019-01-17 09:00 | NUR ---
OFFERED DIET BUT PATIENT REFUSED AT THIS TIME STATES HE IS NOT HUNGERY AND HAS NOT BEEN EATTING WEL. PATIETN ENCOURAGE TO AT LEAST DRINK FLUIDS. DENIES PAIN AT THIS TIME.
--- NOTE | 2019-01-17 09:43 | NUR ---
PATIENT GIVEN ATIVAN ORDRED AND HAS HAD A TREATMENT FOR HER BREATHING. ESHA IS ANXIOUS AT TIMES AND IS VERY CONSISTANT ON HER ANXIETY AND HAS BEEN WITH ASTHMA A CHILD. PATIENT HAS BEEN OOB AND TOLERATE DWELL. SHE ATE WELL AT THEMEAL AND WITH GAURTINY AT BEDSIDE AND SECURITY HAS BEEN MAINTAINED. HELD THE BP MEDICATION DUE TO LOW BP THIS AM. WILL CONTINE TO MONITOR.
[2019-01-17 09:48] VITALS: BP 104/64
--- NOTE | 2019-01-17 10:06 | NUR ---
PATIENT RECEIVED ALERT AND ORIENTED TIMES FOUR. PATIENT HAS BEEN WITH NOTED WBC AT 17.0 AND NOW AT 21.1. THE PATIENT HAS ORDERED ROCEPHIN AND SALINE IV. PATIENT NOTED THE PHOS AT 1.9, AND ALSO THE POTASSIUM AT 3.4. THE PATIENT HAS NEGATIVE CHEST XRAY BUT HAS DIMINIHSED BREATH SOUNDS AND THE VITALS AT THIS TIME AT 99.8, 102, 18, 118/62, 97%. THE URINE IS WITH WBCS OF 30-50, AND THE PATIENT HAS LAST BLOOD SUGAR AT 219 AND COVERAGE WAS GIVEN OF 6 UINTS. PATIENT HAS BEEN URING THE URINAL AND DENIES ANY BURNING OR HESITATION AT THIS TIME.
--- NOTE | 2019-01-17 11:56 | NUR ---
COMPLAINS OF PAIN TO THE ABDOMEN AND GAVE 4MG OF MORPHINE ORDERED. WILL CONTINUE TO MONITOR.
[2019-01-17 12:33] VITALS: BP 112/62
--- NOTE | 2019-01-17 13:20 | NUR ---
SLEEPING QUIETLY AT THIS TIME. WILL CONTINUE TO MONITOR. THE MORPHINE APPEARS TO BE EFFCCTIVE.
--- NOTE | 2019-01-17 14:40 | NUR ---
PATIENT REQUESTED PAIN MEDICATION AND GAVE MORPHINE ORDERED AND WILL CONTINUE TO MONITOR
--- NOTE | 2019-01-17 16:25 | NUR ---
RESTING QUIETLY AT THIS TIME. THE MORPHINE HAS BEEN EFFECTIVE.
--- NOTE | 2019-01-17 16:58 | NUR ---
INSISTS TO BE DISCONECTED FROM THE IV FOR RESTROOM USE. WILL CONTINUE TO MONITOR INDICATED.
[2019-01-17 18:30] VITALS: BP 104/55
--- NOTE | 2019-01-17 18:53 | NUR ---
REQUESTED PAIN MEDICATIONA DN GAVE MORPHINE ORDERED. ESHA DOES OT WISH TO EAT HE STATES HE HAS NAUSEA. ENCOURAGED INTAKE AND ADVISED THE PATIENT OF THE NARCOTIC TOO CAN CAUSE NAUSEA.
--- NOTE | 2019-01-17 19:58 | NUR ---
PT RECIEVED AAO REG RESP NO SOB V/S STABLE KEPT CLEAN AND DRY TO TOUCH,IV ABDO IS SOFT WITH ACTIVE BOWEL SOUNDS,INFUSING WELL WITH THE SITE PATENT AND INTACT,MADE COMFORTABLE IN BED,PT ON TELE MONITOR AND IN NSR NO ECTOPY OR CHEST PAIN AT THIS TIME,CALL LIGHT EASY REACHED AND WILL CONTINUE TO MONITOR.
[2019-01-17 22:18] VITALS: BP 108/70
--- NOTE | 2019-01-17 22:47 | NUR ---
PT WAS INTERVIEW PER PATIENT HE IS NOT ALLEGIC TO TYLENOL INDICATED ON HIS EMAR PROFILE,PHARMACY WAS NOTIFY AND SAYS TO UPDATE HIS ALLERGY PROFILE,WILL CONTINUE TO WILL CONTINUE TO MONITOR.
--- NOTE | 2019-01-17 22:51 | NUR ---
CALL TO DR HERNADEZ AND MADE AWARE IF PT PAIN MEDS CAN BE CHANGE TO PO,ORDER TO DO THAT,WILL CONTINUE TO MONITOR.
--- NOTE | 2019-01-18 01:03 | NUR ---
CALL TO DR HERNADEZ AND MADE AWARE PATIENT C/O OF ABDO PAIN AND WAS GIVEN ULTRAM 50 MG PO ORDER BUT PATINT STILL C/O OF PAIN NOT GOING AWAY,DR HERNADEZ CALLED AND ORDER TO GIVE CARAFATE 1GM PO AND BEANDRYL 25 MG PO PATIENT WANTED SOMETHING FOR SLEEP,WILL CONITNUE TO MONITOR.
[2019-01-18 05:54] VITALS: BP 102/57
--- NOTE | 2019-01-18 06:17 | NUR ---
PT WAS CLEAN AND MADE COMFORTABLE IN BED,KEPT CLEAN AND DRY TO TOUCH,CALL LIGHT EASY REACHED AND WILL CONTINUE TO MONITOR.
[2019-01-18 06:35] LABS: BASOPHIL % 0.3 % (0-2); PLATELET COUNT 170 x10^3mcL (130-400); RED CELL DISTRIBUTION WIDTH 14.5 % (11.5-14.5)
[2019-01-18 07:07] LABS: CALCIUM 8.7 mg/dL (8.5-10.1); CARBON DIOXIDE 20.2 mmol/L (21-32); CHLORIDE SERUM 108 mmol/L (98-107); CREATININE SERUM 0.8 mg/dL (0.7-1.3); GFR1 > 60 mL/min; GLUCOSE SERUM 116 mg/dL (74-106); POTASSIUM SERUM 3.8 mmol/L (3.5-5.1); SODIUM SERUM 141 mmol/L (136-145)
--- NOTE | 2019-01-18 08:00 | NUR ---
SHIFT ASSESSMENT DONE. PATIENT A/A/OX4. TELE#10; SR; HR = 67. DENIED CHEST PAIN. NO RESP DISTRESS ON RA. C/O L FLANK PAIN AND NAUSEA. TEMP= 98.4 (ORAL). ABD ROUND/SOFT. VOID FREELY. DENIED DYSURIA. IVF OF NS 100CC/HR. DR. LITTLEJOHN SAW PATIENT. NEW ORDER WRITTEN. CALL LIGHT IN REACH.
--- NOTE | 2019-01-18 08:27 | NUR ---
PATIENT REFUSED BREAKFAST. C/O NAUSEA AND LT ABD PAIN ON 11/29. MORPHINE 2MG AND ZOFRAN 4MG IVP GIVEN. CONTINUE MONITOR.
[2019-01-18 09:15] VITALS: BP 113/68
[2019-01-18 12:47] VITALS: BP 130/77
--- NOTE | 2019-01-18 16:01 | NUR ---
TOLERATED LUNCH. NO N/V AFTER LUNCH.
[2019-01-18 18:13] VITALS: BP 125/74
--- NOTE | 2019-01-18 18:46 | NUR ---
TOLERATED DINNER. NO N/V NOW. VOID X6 VIA URINAL OR BRP. NO BM THIS SHIFT. IVF OF NS 100CC/HR. ENDORSED CARE TO NOC NURSE.
--- NOTE | 2019-01-18 19:36 | NUR ---
PT RECIEVED AAO REG RESP NO SOB V/S STABLE,KEPT CLEAN AND DRY TO TOUCH,KEPT CLEAN AND DRY TO TOUCH,PT WAS ABULATING IN THE HALLWAY IN STABLE CONDITION PT ON TELE MONITOR AND IN NSR NO ECTOPY OR CHEST PAIN AT THIS TIME,CALL LIGHT EASY REACHED AND WILL CONTINUE TO MONITOR.
[2019-01-18 21:29] VITALS: BP 125/70
--- NOTE | 2019-01-18 23:16 | NUR ---
PT RESTING AT THIS TIME,WILL CONTINUE TO MONITOR.
[2019-01-19 05:58] VITALS: BP 120/68
--- NOTE | 2019-01-19 06:39 | NUR ---
PT HAD ARESTING NIGHT NO CHANGE AT THIS TIME,WILL CONTINUE TO MONITOR.
[2019-01-19 06:48] LABS: CALCIUM 8.6 mg/dL (8.5-10.1); CARBON DIOXIDE 23.5 mmol/L (21-32); CHLORIDE SERUM 109 mmol/L (98-107); CREATININE SERUM 0.9 mg/dL (0.7-1.3); GFR1 > 60 mL/min; GLUCOSE SERUM 96 mg/dL (74-106); POTASSIUM SERUM 4.2 mmol/L (3.5-5.1); SODIUM SERUM 143 mmol/L (136-145)
[2019-01-19 06:59] LABS: BASOPHIL % 0.5 % (0-2); PLATELET COUNT 203 x10^3mcL (130-400); RED CELL DISTRIBUTION WIDTH 14.1 % (11.5-14.5)
--- NOTE | 2019-01-19 07:48 | NUR ---
A+OX4, TELE 10, PULSES MODERATE AND EQUAL LALITA, NO EDEMA NOTED, LUNG SOUNDS CTA, TOELRATING RA, BOWEL SOUNDS ACTIVE, VOIDING FREELY, AMBUALTORY, SKIN INTACT, IV IN R HAND WITH NS @ 100 ML/HR, SITE WNL.
--- NOTE | 2019-01-19 09:15 | NUR ---
PT RESTING IN BED, DENIES PAIN, DENIES NAUSEA/VOMITING, NO RESPIRATORY DISTRESS NOTED, CALL LIGHT WITHIN REACH.
[2019-01-19 09:41] VITALS: BP 123/70
[2019-01-19] MEDS ORDERED: LEV500 PO (10:22)
[2019-01-19 10:39] VITALS: BP 123/70
--- NOTE | 2019-01-19 10:43 | NUR ---
PT NOTIFIED THAT HE WILL BE DC TODAY. PT AGREEABLE TO DC BUT STATES HE HAS NO TRANSPORTATION HOME. KIRA FROM [employer] NOTIFIED AND STATES THAT INSURANCE WILL NOT COVER TRANSPORTATION HOME AND OFFERED PT BUS PASS. PT REFUSED BUS PASS AND STATES THAT HE WILL CALL FRIENDS TO SEE IF SOMEONE CAN PICK HIM UP.
--- NOTE | 2019-01-19 11:33 | NUR ---
PT GIVEN DC INSTRUCTIONS INCLUDING PRESCRIPTION FOR LEVAQUIN PO AND REFERRAL TO UROLOGIST. WITNESSED PT SIGN ALL DC FORMS. IV REMOVED WITH CATHETER INTACT, SITE WNL, GAUZE AND TAPE PLACED ON SITE. TELE REMOVED AND RETURNED TO [facility]. PT OFF UNIT AMBULATING INDEPENDENTLY WITH ALL BELONGINGS ESCORTED BY SHALONDA.
== END 2019-01-19 11:30 | disposition home or self-care (01) | DRG 720 ==
LOC: ED 12:50 → DU 17:36 → EDBEDREQ 18:32 → DU 18:40
PROVIDERS: Internal Medicine; Specialist; ADMIT Internal Medicine
DX: A41.9 Sepsis, unspecified organism (principal); I48.91 Unspecified atrial fibrillation; N13.6 Pyonephrosis; K57.30 Diverticulosis of large intestine without perforation or abscess without bleeding; B96.20 Unspecified Escherichia coli [E. coli] as the cause of diseases classified elsewhere; E66.9 Obesity, unspecified; Z88.6 Allergy status to analgesic agent; Z88.1 Allergy status to other antibiotic agents; Z68.35 Body mass index [BMI] 35.0-35.9, adult
CPT/HCPCS: 36600; 84439; G0378; J1885; J1956; J2185; J2270; J2405; J3010; J3490; J7030; Q0092; Q0163; Q9967

== ENCOUNTER 2019-06-23 11:23 | Inpatient (IN) | payer OTHER ==
[~2019-06-23] VITALS: Ht 177.8 cm; Wt 123.4 kg
[~2019-06-23 11:23] MED LIST changes: +LEV500 PO
--- NOTE | 2019-06-23 11:57 | NUR ---
PER PT STS THAT HE HAS HAD GENERALIZED ABDOMINAL PAIN SINCE YESTERDAY. PT STS THAT HE HAS HAD NO N/V, BUT DIARRHEA AND CONSTIPATION. WITH PLAPATION PT HAS LALITA LOWER QUAD PAIN,EPIGASTRIC, RT UPPER QUAD. PT STS THAT HE HAS BRIGHT RED BLOOD IN STOOL THAT STARTED TODAY, DYSURIA/FREQUENCY. +BOWEL SOUNDS ALL 4 QUAD. PT AAOX4. VSS. RESP E/U. PT PLACED ON CM. WILL CONTINUE TO MONITOR.
[2019-06-23 12:07] LABS: BASOPHIL % 0.7 % (0-2); PLATELET COUNT 204 x10^3mcL (130-400); RED CELL DISTRIBUTION WIDTH 13.1 % (11.5-14.5)
--- NOTE | 2019-06-23 12:15 | NUR ---
PT SKINS ARE DIAPHORETIC, HOT AND PINK. WILL CONTINUE TO MONITOR.
--- NOTE | 2019-06-23 12:16 | NUR ---
XRAY AT BEDSIDE.
[2019-06-23 12:21] LABS: CALCIUM 8.9 mg/dL (8.5-10.1); CARBON DIOXIDE 27.9 mmol/L (21-32); CHLORIDE SERUM 101 mmol/L (98-107); GFR1 > 60 mL/min; GLUCOSE SERUM 146 mg/dL (74-106); POTASSIUM SERUM 3.9 mmol/L (3.5-5.1); SODIUM SERUM 135 mmol/L (136-145)
[2019-06-23 12:23] LABS: microscopic required? YES; urine erythrocyte 2+ (NEGATIVE)
[2019-06-23 12:26] LABS: ALBUMIN 3.8 g/dL (3.4-5.0); ALKALINE PHOSPHATASE 64 U/L (46-116); ALT/SGPT 65 U/L (16-63); AST/SGOT 45 U/L (15-37); BILIRUBIN TOTAL 0.9 mg/dL (0.20-1.00); LIPASE 718 IU/L (73-393); TOTAL PROTEIN, SERUM 8.1 g/dL (6.4-8.2)
--- NOTE | 2019-06-23 12:51 | NUR ---
PT TAKEN TO T.
--- NOTE | 2019-06-23 13:12 | NUR ---
REPORT GIVEN TO FRANK TRAVIS TO ASSUME CARE OF PT.
--- NOTE | 2019-06-23 14:06 | NUR ---
PT IN GURNEY IN POSITION OF COMFORT. IV INTACT, PATENT. FLUIDS INFUSING WELL. PT IN NO DISTRESS.
--- NOTE | 2019-06-23 15:52 | NUR ---
PT IN CHEMA, RESP E/U.
--- NOTE | 2019-06-23 16:20 | NUR ---
PT MEDICATED FOR PAIN. PT PROVIDED WITH WARM BLANKET FOR COMFORT. REMAINS CONNECTED TO FULL CM.
--- NOTE | 2019-06-23 16:57 | NUR ---
REPORT GIVEN TO THADDEUS BRANCH TO ASSUME CARE.
--- NOTE | 2019-06-23 17:33 | NUR ---
RECEIVED PT FROM ED VIA [employer], CAME IN DUE TO ABDOMINAL PAIN. AAOX4. C/O 7/10 HEADACHE AND MILD DIZZINESS. ABLE TO FOLLOW COMMANDS. SPEECH IS CLEAR. C/O SOB, LUNG SOUNDS CTA. ON 2LPM/NC, O2 SAT=98%. DENIES CHEST PAIN/PRESSURE, LA-102. STATED THAT HE HAD X2 EPISODES OF DIARRHEA W/ BRIGHT RED BLOOD. ABDOMEN IS SOFT AND ROUND. C/O 7/10 ABDOMINAL PAIN, DENIES NAUSEA/VOMITING. BOWEL SOUNDS ACTIVE. C/O BURNING SENSATION ON URINATION. IV SITE PATENT AND INTACT. WKBH=778.8 (TEMPORAL) AND 100.8 (ORAL). COOLING TEMPERATURES INITIATED SIDE RAILS UPX2. CALL LIGHT ON REACH. PT'S FRIEND AT BEDSIDE. ENDORSED TO PRIMARY NURSE JOSE CARLOS FOR CONTINUITY OF CARE
--- NOTE | 2019-06-23 17:35 | NUR ---
PT PLACED ON TELE#14, NSR ON THE MONITOR, HR=96.
[2019-06-23 17:43] VITALS: BP 101/48
[2019-06-23 17:46] VITALS: Ht 177.8 cm; Wt 123.4 kg
--- NOTE | 2019-06-23 18:40 | NUR ---
PT RESTING IN BED, AOX4, RESP E/U ON 2L NC. C/O OF ABD PAIN BUT TOLERABLE, NO REQUEST FOR PAIN MEDS AT THIS TIME. IV TO LAC W/ NO SIGNS OF INFITLRATION, IVF INFUSING WELL. BED IN LOWEST POSITION AND CALL LIGHT WITHIN REACH. WILL ENDORSE TO ONCOMING NURSE.
[2019-06-23 19:38] VITALS: BP 11/69
--- NOTE | 2019-06-23 19:40 | NUR ---
AWAKE AND ALERT, ORIENTED TO NAME, PLACE, TIME AND SITUATION. SPEECH CLEAR AND APPROPRIATE. BREATHING EVEN AND UNLABORED ON ROOM AIR. LUNG SOUNDS CLEAR. SINUS RHYTHM ON TELE. STATED HAVING 8/10 ABD PAIN, DENIES HAVING NAUSEA. MEDICATED WITH PRN ULTRAM PO. IVF OF NS WITH 40MEQ KCL INFUSING AT 80ML/HR INTO LEFT AC IV. CALL LIGHT WITHIN EASY REACH.
--- NOTE | 2019-06-23 23:49 | NUR ---
PT MOANING AND GRIMACING, STATED HAVING ABD PAIN 03/01. MORPHINE 4MG ADMINISTERED SLOW IVP PER PRN ORDER.
--- NOTE | 2019-06-24 02:24 | NUR ---
EYES CLOSED, BREATHING EVEN AND UNLABORED ON ROOM AIR. IVF INFUSING WELL. CALL LIGHT WITHIN EASY REACH.
--- NOTE | 2019-06-24 03:44 | NUR ---
PT ACCIDENTALLY PULLED IV OUT. INTACT. NEW IV INSERTED TO RIGHT FOREARM.
[2019-06-24 04:43] VITALS: BP 100/55
--- NOTE | 2019-06-24 06:21 | NUR ---
MORPHINE 4MG ADMINISTERED SLOW IVP FOR COMPLAINT OF 8-9/10 ABD PAIN. BREATHNG EVEN AND UNLABORED ON 2LPM OF O2 VIA NC. CALL LIGHT WITHIN EASY REACH.
[2019-06-24 06:24] LABS: BASOPHIL % 0.3 % (0-2); PLATELET COUNT 166 x10^3mcL (130-400); RED CELL DISTRIBUTION WIDTH 13.7 % (11.5-14.5)
[2019-06-24 06:52] LABS: ALKALINE PHOSPHATASE 56 U/L (46-116); ALT/SGPT 43 U/L (16-63); AST/SGOT 30 U/L (15-37); BILIRUBIN TOTAL 1.06 mg/dL (0.20-1.00); CALCIUM 8.2 mg/dL (8.5-10.1); CARBON DIOXIDE 29.9 mmol/L (21-32); CHLORIDE SERUM 103 mmol/L (98-107); GFR1 > 60 mL/min; GLUCOSE SERUM 129 mg/dL (74-106); LIPASE 187 IU/L (73-393); POTASSIUM SERUM 3.8 mmol/L (3.5-5.1); SODIUM SERUM 138 mmol/L (136-145)
[2019-06-24 06:56] LABS: ALBUMIN 3.1 g/dL (3.4-5.0)
--- NOTE | 2019-06-24 07:06 | NUR ---
EYES CLOSED, EASILY AWAKENED. BREATHING EVEN AND UNLABORED. APPEARS COMFORTABLE AT THIS TIME. CALL LIGHT WITHIN EASY REACH. IVPB GENTAMYCIN INFUSING AT THIS TIME. ENDORSED TO NURSE LUGO
--- NOTE | 2019-06-24 07:32 | NUR ---
RECEIVED PATIENT FROM NIGHT NURSE. AWAKE, ALERT AND ORIENTED. MONITOR SHOWING SINUS RHYTHM; RATE 80'S. IV INFUSING GENTAMYCIN. TROUGH HAD BEEN COLLECTED. GENTAMYCIN PEAK DUE AT 0800. PATIENT IS NPO.
[2019-06-24 09:07] VITALS: BP 94/52
--- NOTE | 2019-06-24 10:34 | NUR ---
AT 0930 - SEEN BY DR DAVILA. NEW ORDERS RECEIVED. TO COMMENCE FULL LIQUID DIET.
[2019-06-24 12:25] VITALS: BP 91/59
--- NOTE | 2019-06-24 14:28 | NUR ---
AT 1245 - PATIENT DID NOT WISH TO HAVE ANY LUNCH. REPORTS REDUCED APPETITE. C/O PAIN "ALL OVER'. MEDICATED WITH IV MORPHINE PER EMAR. AT 1415 - RESTING QUIETLY. SCHEDULED DOSE OF GENTAMICIN IN PROGRESS.
[2019-06-24 16:28] VITALS: BP 107/71
--- NOTE | 2019-06-24 18:02 | NUR ---
VSS. REMAINS AFEBRILE BUT C/O CHILLS. C/O GENERALIZED BODY PAINS WELL PAINFUL URINATION. VOIDING IN URINAL MARIA D URINE. URINE CULTURE POSITIVE FOR GRAM NEGATIVE BACILLI. AWAITING CULTURE SENSATIVITIES. PATIENT ENCOURAGED TO TAKE PO FLUIDS. CURRENTLY REFUSING MOST OF FOOD/FLUIDS OF FULL LIQUID DIET. IV INFUSING NS WITH 40 MEQ KCL AT 80 ML/HR. MEDICATED WITH IV MORPHINE PER EMAR. WILL ENDORSE CARE TO NIGHT NURSE.
--- NOTE | 2019-06-24 20:00 | NUR ---
RECEIVED PT IN BED, A/O X4. ABLE TO VERBALIZE NEEDS.RESP. EVEN AND UNLABORED. LUNG SOUNDS CLEAR, ON ROOM AIR. NO ACUTE DISTRESS NOTED. AFEBRILE AND VITAL SIGNS STABLE. SR ON THE MONITOR, DENIES CP OR PRESSURE. IVF, NS WITH KCL AT 80ML/HR, INTACT AND INFUSING VIA LAC, SITE CLEAR. ABD. SOFT, NON DISTENDED, BS ACTIVE, NO N/V NOTED. NO COMPLAINTS NOTED AT THIS TIME. ASSISTED WITH HS CARE. CALL LIGHT WITHIN REACH. WILL CONTINUE TO MONITOR.
[2019-06-24 21:33] VITALS: BP 97/60
--- NOTE | 2019-06-24 22:00 | NUR ---
COMPLAINED OF LOWER ABD. PAIN, 6/10, REQUESTING PAIN MED, MEDICATED WITH MORPHINE SULF. ORDERED. WILL CONTINUE TO MONITOR.
--- NOTE | 2019-06-24 23:12 | NUR ---
TEMP. SHOWS 102.2, COOLING MEASURES APPLIED. TYLENOL PO GIVEN ORDERED. PT REMAINS ON IV ANTIBIOTICS. WILL CONTINUE TO MONITOR.
--- NOTE | 2019-06-25 | NUR ---
TEMP RECHECK SHOWS 99.2. WILL CONTINUE TO MONITOR.
--- NOTE | 2019-06-25 01:12 | NUR ---
NO COMPLAINTS NOTED AT THIS TIME. ASLEEP, APPEARS COMFORTABLE. EASILY AROUSABLE. RESP. EVEN AND UNLABORED. NO ACUTE DISTRESS NOTED. WILL CONTINUE TO MONITOR.
[2019-06-25 05:59] VITALS: BP 131/71
--- NOTE | 2019-06-25 06:36 | NUR ---
AFEBRILE AND VITAL SIGNS STABLE. RESP. EVEN AND UNLABORED. NO ACUTE DISTRESS NOTED, DUE MEDS GIVEN ORDERED, BILL. WELL. COMPLAINED OF LOWER ABD. PAIN 5/10, MEDICATED WITH MORPHINE SULFATE WITH RELIEF. RESTING QUIETLY IN BED AT THIS TIME. APPEARS COMFORTABLE. WILL ENDORSE TO INCOMING NURSE.
[2019-06-25 08:56] VITALS: BP 132/72
--- NOTE | 2019-06-25 09:13 | NUR ---
AT 0705 RECEIVED PT FROM NIGHT RN. PT SLEEPING. RESP REGULAR. IV INFUSING WITH NS W/ 40 KCL AT 80 ML/HR. AT 0730 PT C/O LLQ PAIN TO ABD. R FA IV INFILTRATED. IV INSERTED L HAND. R FA IV CATHETER REMOVED AND INTACT. AT 0740 MEDICATED WITH IV MORPHINE 4MG PER EMAR. PT MADE COMFORTABLE. DECLINED BREAKFAST AT THIS TIME. AT [address] GLASER[address] DR EXAMINED PT AND SPOKE TO HIM ABOUT PLAN OF TREATMENT. WILL LIKELY TO STAY IN HOSPITAL FOR 2 DAYS FOR IV ANTIBIOTICS. NEW ORDERS RECEIVED.
--- NOTE | 2019-06-25 10:52 | NUR ---
AT 0945 - IV FLUID CHANGED TO NS AT 100 ML/HR. PATIENT C/O NAUSEA. NO ANTIEMETIC MEDICATION ON PROFILE. CALL PLACED FOR DR CARTER. [id number] - DR CARTER PER PHONE. RECEIVED ORDER FOR ZOFRAN 4 MG IV Q 4 HR PRN AT 1025 - MEDICATED WITH ZOFRAN PER EMAR.
--- NOTE | 2019-06-25 12:23 | NUR ---
PT C/O 12/29 ABD PAIN. GIVEN MORPHINE SULFATE PRN. WILL REASSESS.
[2019-06-25 12:40] VITALS: BP 107/59
--- NOTE | 2019-06-25 12:49 | NUR ---
TEMP 102.6. GIVEN TYLENOL PER EMAR. COLD PACK NOT APPLIED. PT STATES FEELING OF CHILLS. ENCOURAGED PT TO DRINK FLUIDS AND IV INFUSING AT 100ML/HR. WILL CONTINUE TO MONITOR.
--- NOTE | 2019-06-25 13:22 | NUR ---
AT 1310 PT REPORTS NO CHILLS. COOLING MEASURES APPLIED. ICE PACKS APPLIED TO BOTH ARMPITS.
--- NOTE | 2019-06-25 13:34 | NUR ---
CALL PLACED FOR DR CARTER TO NOTIFY OF URINE CULTURE RESULTS AND SENSITIVITIES.
[2019-06-25 14:06] VITALS: BP 116/63
--- NOTE | 2019-06-25 14:11 | NUR ---
TEMP NOW 101.3 COOLING MEASURES STIL IN PLACE. AWAITING CALL FROM DR CARTER
--- NOTE | 2019-06-25 14:38 | NUR ---
DR CARTER PER PHONE; INFORMED OF URINE CULTURE RESULTS. RECEIVED NEW ORDERS: DISCONTINUE ZOSYN. IV MERRIPENUM 1 G Q 8 HR
--- NOTE | 2019-06-25 15:50 | NUR ---
PT C/O ABD PAIN. GIVEN MORPHINE SULFATE PER EMAR. WILL REASSESS.
[2019-06-25 17:04] VITALS: BP 134/81
--- NOTE | 2019-06-25 18:10 | NUR ---
PT RESTING IN BED. ABD PAIN UNDER CONTROL WITH IV MORPHINE. PT STILL C/O CHILLS WITH TEMP 100.3. VOIDING IN URINAL. PT REPORTS LESS BURNING URINE TODAY. DECREASED APPETITE. 1 LARGE BM THIS AFTERNOON. IV INFUSING NS AT 100ML/HR. ENCOURAGED TO DRINK MORE FLUIDS PO. WILL ENDORSE CARE TO NIGHT RN.
--- NOTE | 2019-06-25 19:05 | NUR ---
RECIEVED REPORT FROM RN. NURSING UPDATES. POC DISCUSSED. SEE SHIFT ASSESSMENT FOR ASSESSMENT.
--- NOTE | 2019-06-25 20:00 | NUR ---
PT REPORTING DEEP PAIN IN LLQ OF ABD 01/29. CALMING MEASURES ATTEMPTED W/ NO AVAIL. ADM PRN MORPHINE PER PAIN. SEE MAR. PT TOLERATED WELL. PT ABLE TO STAND AND GO TO BATHROOM W/ MINIMAL ASSITANCE.
[2019-06-25 20:16] VITALS: BP 117/64
--- NOTE | 2019-06-25 22:39 | NUR ---
PT RESTING CALMLY IN BED. NO ACUTE CHANGES.
--- NOTE | 2019-06-25 23:23 | NUR ---
PT IRRITATED W/ NC. TITRATED NC OFF. PT TOLERATING WELL. NO S/S OF RESP DISTRESS. PT STATED HE IS FEELS LIKE HE IS BREATHING FINE. WILL CONT TO MONITOR.
--- NOTE | 2019-06-26 02:01 | NUR ---
PT REPORTING DEEP PAIN IN LLQ OF ABD 01/29. CALMING MEASURES ATTEMPTED W/ NO AVAIL. ADM PRN MORPHINE PER PAIN. SEE AUG. PT TOLERATED WELL.
[2019-06-26 04:55] VITALS: BP 96/66
[2019-06-26 05:52] LABS: BASOPHIL % 0.2 % (0-2); PLATELET COUNT 166 x10^3mcL (130-400)
[2019-06-26 06:12] LABS: CALCIUM 8.5 mg/dL (8.5-10.1); CHLORIDE SERUM 101 mmol/L (98-107); GFR1 > 60 mL/min; GLUCOSE SERUM 127 mg/dL (74-106); POTASSIUM SERUM 3.8 mmol/L (3.5-5.1); SODIUM SERUM 135 mmol/L (136-145)
--- NOTE | 2019-06-26 06:21 | NUR ---
PT RESTING CALMLY IN BED. NO ACUTE CHANGES. WILL CONT TO MONITOR.
--- NOTE | 2019-06-26 08:08 | NUR ---
AT 0710 - RECEIVED PATIENT FROM NIGHT NURSE. AWAKE, ALERT AND ORIENTED. C/O LLQ ABDOMINAL PAIN 03/31. IV INFUSING NS AT 100 ML/HR. AT 0725 - MEDICATED WITH IV MORPHINE PER EMAR. DENIES ANY NAUSEA AT THIS TIME BUT REPORTS NO APPETTIE. AT 0815 - SEEN AND EXAMINED BY DR CARTER. DR SPOKE WITH PATIENT ABOUT PLAN OF TREATMENT. NEW ORDERS RECEIVED.
[2019-06-26 09:16] VITALS: BP 116/65
[2019-06-26 13:41] VITALS: BP 126/69
--- NOTE | 2019-06-26 13:42 | NUR ---
AT 0950 - COMMENCED ON FLOMAX. FIRST DOSE ADMINISTERED. IV INFUSION REMAINS NS AT 100 ML/H. PAIN UNDER CONTROL AT THIS TIME. PATIENT HAS AMBULATED TO BATHROOM. HAS HAD A BM. NOW SITTING ON SIDE OF BED. AT 1235 - PATIENT SLEPT FOR GREATER PART OF MORNING. PAIN APPEARS LESS. NOW SITTING ON SIDE OF BED FOR LUNCH. AT 1300 - WAS ABLE TO EAT SOME SOLID FOOD FOR LUNCH. NO C/O NAUSEA. NOW RESTING QUIETLY.
--- NOTE | 2019-06-26 15:23 | NUR ---
PATIENT AMBULATING. BETTER ACTIVITY TOLERANCE TODAY AND PAIN MANAGABLE AT THIS TIME.
--- NOTE | 2019-06-26 16:07 | NUR ---
AT 1545 - MEDICATED WITH IV MORPHINE PER EMAR FOR LLQ ABDOMINAL PAIN 03/01. IV MERIM NOW IN PROGRESS.
--- NOTE | 2019-06-26 17:49 | NUR ---
AT 1730 - PATIENT TAKEN OFF CARDIAC MONITORING. STATUS CHANGED TO MED-SURG
--- NOTE | 2019-06-26 18:55 | NUR ---
REMAINS AFEBRILE. PAIN UNDER CONTROL AT PRESENT. IV INFUSING NS AT 100 ML/HR. AMBULATES IN ROOM. BETTER ACTIVITY TOLERANCE TODAY. WILL ENDORSE CARE TO NIGHT NURSE.
--- NOTE | 2019-06-26 19:53 | NUR ---
RECEIVED PT FROM AM SHIFT. PT IS A/O X4, VERBAL RESPONSIVE. LUNG SOUND CLEAR BILATERAL, NO COUGH, NO SOB. PT DENY ANY CHEST PAIN OR DISCOMFORT. BOWEL SOUND PRESENT ALL 4 QUADRANTS, NO DISTENTION, NO TENDER. PEDAL PULSE PRESENT BOTH FEET, NO EDEMA, IV AT LEFT HAND, NO LEAKING, NO INFILTRAIOTN. PT DENY ANY PAIN AT THIS MOMENT, ALL ADLS ASSIST, ALL NEED MET, CALL LIGHT IN REACH, WILL CONTINUE OT MONITOR.
[2019-06-26 21:22] VITALS: BP 120/77
[2019-06-27 05:32] VITALS: BP 115/76
--- NOTE | 2019-06-27 05:40 | NUR ---
PT IS SLEEPING, AWAKE BY TOUCH, DENY ANY RESPIRATORY DISTRESS, DENY ANY PAIN OR DISCOMFORT, IV AT LEFT HAND, NO LEAKING, NO INFITLRATINO. ALL ADLS ASSIST, ALL NEED MET, CALL LIGHT IN REACH, WILL CONTINUE TO MONITOR.
[2019-06-27 06:18] LABS: BASOPHIL % 0.5 % (0-2); PLATELET COUNT 186 x10^3mcL (130-400); RED CELL DISTRIBUTION WIDTH 13.7 % (11.5-14.5)
[2019-06-27 06:23] LABS: CALCIUM 8.4 mg/dL (8.5-10.1); CARBON DIOXIDE 26.3 mmol/L (21-32); CHLORIDE SERUM 104 mmol/L (98-107); GFR1 > 60 mL/min; GLUCOSE SERUM 130 mg/dL (74-106); POTASSIUM SERUM 3.8 mmol/L (3.5-5.1); SODIUM SERUM 137 mmol/L (136-145)
--- NOTE | 2019-06-27 07:30 | NUR ---
RECEIVED PT RESTING IN BED. NO ACUTE DISTRESS. AAOX4. RESP EVEN AND UNLABORED ON RA. VOIDING USING URINAL. DENIES PAIN AT THIS TIME. IV TO L HAND, NO REDNESS OR SWELLING NOTED. BED IN LOW POSITION, CALL LIGHT WITHIN REACH. WILL CONTINUE TO MONITOR.
[2019-06-27] MEDS ORDERED: LEVOFLOXACIN500 M1 PO (08:18)
[2019-06-27] MEDS ORDERED: FLO4 PO (08:18)
[2019-06-27] MEDS ORDERED: MECLIZINE HYDRO25 M1 PO (08:19)
[2019-06-27 09:03] VITALS: BP 117/70
[2019-06-27 11:14] VITALS: BP 117/70
--- NOTE | 2019-06-27 12:28 | NUR ---
PT IN NO ACUTE DISTRESS. AWAKE, ALERT, AND ORIENTED. VSS. AMBULATORY. RX GIVEN. DISCHARGE EDUCATION PROVIDED, PT VERBALIZED UNDERSTANDING. INSTRUCTED PT TO FOLLOW UP WITH PCP AND UROLOGIST. BELONGINGS WITH PT. PT WAITING FOR RIDE HOME, ESTIMATED AROUND 3 PM. CALL LIGHT WITHIN REACH. WILL CONTINUE TO MONITOR.
[2019-06-27 13:24] VITALS: BP 124/79
--- NOTE | 2019-06-27 15:16 | NUR ---
PT IN NO ACUTE DISTRESS. AWAKE, ALERT, AND ORIENTED. VSS. TRANSPORTED VIA WHEELCHAIR. RX GIVEN. DISCHARGE EDUCATION PROVIDED, PT VERBALIZED UNDERSTANDING. INSTRUCTED PT TO FOLLOW UP WITH PCP. IV TO RFA AND R HAND DC'D WITH CATHETER INTACT. BELONGINGS WITH PT. PRESENT FOR DISCHARGE.
--- NOTE | 2019-06-27 15:20 | NUR ---
PT DISCHARGED TO HOME IN NO ACUTE DISTRESS. AWAKE, ALERT, AND ORIENTED. VSS. AMBULATORY. BELONGINGS WITH PT.
== END 2019-06-27 15:25 | disposition home or self-care (01) | DRG 720 ==
LOC: ED 11:23 → MU 15:38 → DU 15:38 → EDBEDREQSVC 15:40 → MU 17:12 → DU 17:13 → MU 06-26 16:41
PROVIDERS: Emergency Medicine; Internal Medicine Pulmonary Disease; ADMIT Internal Medicine Pulmonary Disease
DX: A41.9 Sepsis, unspecified organism (principal); I48.91 Unspecified atrial fibrillation; K76.89 Other specified diseases of liver; N41.0 Acute prostatitis; Z68.41 Body mass index [BMI] 40.0-44.9, adult; R65.20 Severe sepsis without septic shock; R74.0 Nonspecific elevation of levels of transaminase and lactic acid dehydrogenase [LDH]; N40.0 Benign prostatic hyperplasia without lower urinary tract symptoms; R73.9 Hyperglycemia, unspecified; M47.816 Spondylosis without myelopathy or radiculopathy, lumbar region; D35.01 Benign neoplasm of right adrenal gland; Z60.2 Problems related to living alone; K59.00 Constipation, unspecified; B96.1 Klebsiella pneumoniae [K. pneumoniae] as the cause of diseases classified elsewhere; Z79.899 Other long term (current) drug therapy
CPT/HCPCS: C9113; G0378; J0696; J1580; J1644; J1885; J2185; J2270; J2405; J2543; J3480; J7030; J7060; Q0092; Q9967